=== PATIENT | male | born 1990 | race Hispanic/Latino ===

== ENCOUNTER 2017-11-15 00:44 | Inpatient (IN) | payer BC ==
[2017-11-15] VITALS (23 sets, daily range): BP systolic 114–156; BP diastolic 57–93
[~2017-11-15] VITALS: Ht 167.6 cm; Wt 114.2 kg
[2017-11-15] MEDS ORDERED: HYDROMORPHONE HCL 2 MG/ML VIAL IVP PRN (02:15)
[2017-11-15] MEDS ORDERED: SODIUM CHLORIDE 0.9% 1000ML 1,000 ML IV SCH ×2 (02:15)
[2017-11-15] MEDS ORDERED: DEXTROSE 50%-WATER 50 ML DISP.SYRIN IV PRN ×2 (02:15→03:15)
[2017-11-15] MEDS ORDERED: CALCIUM GLUCONATE 1 GM in SODIUM CHLORIDE 0.9% 50 ML IV SCH (02:15)
[2017-11-15] MEDS ORDERED: GLUCAGON 1MG KIT 1 MG ML IM PRN ×2 (02:15→03:15)
[2017-11-15] MEDS ORDERED: HYDROMORPHONE HCL 0.5 MG/0.5 ML ML ONE ×3 (02:17→05:13)
[2017-11-15] MEDS ORDERED: ACETAMINOPHEN 650 MG SUPPOSITORY RC PRN (02:30)
[2017-11-15] MEDS ORDERED: CALCIUM GLUCONATE 1 GM/10 ML VIAL IV ONE (02:38)
[2017-11-15] MEDS ORDERED: MORPHINE SULFATE 4 MG/1ML SYG ONE (02:52)
[2017-11-15] MEDS ORDERED: POTASSIUM CHLORIDE 20MEQ/100ML 100 ML IV PRN (03:15)
[2017-11-15] MEDS ORDERED: POTASSIUM CHLORIDE 10% ELIXIR 20 MEQ/15 ML UDCUP PO PRN (03:15)
[2017-11-15] MEDS ORDERED: LIDOCAINE HCL-MPF 1% 2ML VIAL IVP PRN (03:15)
[2017-11-15] MEDS: SODIUM CHLORIDE 0.9% 1000ML 1,000 ML IV SCH ×4 (04:29→23:35)
[2017-11-15] MEDS: INSULIN LISPRO 100 UNIT/ML 3ML SQ SCH ×4 (06:26→21:00)
[2017-11-15] MEDS ORDERED: INSULIN DETEMIR 10ML 100 UNIT/ML 10ML SQ SCH (07:30)
[2017-11-15] MEDS: MORPHINE SULFATE 4 MG/1ML SYG IV PRN ×3 (07:30→18:12)
[2017-11-15] MEDS: ONDANSETRON HCL MDV 20ML 2 MG/ML VIAL IVP PRN ×3 (07:31→20:12)
[2017-11-15] MEDS ORDERED: INSULIN GLARGINE 100 UNITS/ML 10 ML VIAL SQ SCH (08:00)
[2017-11-15] MEDS: ENOXAPARIN SODIUM 40 MG/0.4 ML SYRINGE SQ SCH (08:24)
[2017-11-15] MEDS ORDERED: CALCIUM GLUCONATE 1 GM in DEXTROSE 5%-WATER 50 ML IV SCH (09:00)
[2017-11-15] MEDS ORDERED: PANTOPRAZOLE 40 MG/VIAL IVP SCH (09:00)
[2017-11-15 09:48] LABS: BASOPHILS % (AUTO) 0.5 % (0.0-5.0); EOSINOPHILS % (AUTO) 0.2 % (0.0-8.0); HEMATOCRIT 45.9 % (42-54); LYMPHOCYTES % (AUTO) 8.4 % (21.0-51.0); MEAN CORPUSCULAR HEMOGLOBIN 31.4 pg (27.0-33.0); MEAN CORPUSCULAR HGB CONC 36.7 g/dL (32.0-36.0); MEAN CORPUSCULAR VOLUME 85.6 fL (79-99); MONOCYTES % (AUTO) 8.9 % (3.0-13.0); PLATELET COUNT (AUTO) 212 K/uL (130-400); RED BLOOD CELL COUNT(AUTO) 5.37 MIL/uL (4.50-6.20); RED CELL DISTRIBUTION WIDTH 13.2 % (11.0-15.5); WHITE BLOOD COUNT (AUTO) 15.1 K/uL (4.8-10.8)
[2017-11-15 10:45] LABS: CREATININE 0.5 mg/dL (0.5-1.5); POTASSIUM 4.8 mmol/L (3.5-5.1)
[2017-11-15 10:57] LABS: ALBUMIN 2.3 g/dL (3.5-5.0); BILIRUBIN,TOTAL 1.6 mg/dL (0.2-1.0); TOTAL PROTEIN, SERUM 6.6 g/dL (6.0-8.3)
[2017-11-15] MEDS ORDERED: HYDROMORPHONE 1 MG/1 ML AMP ONE ×2 (11:07→20:40)
[2017-11-15] MEDS ORDERED: INSULIN REGULAR, HUMAN 3ML 100 UNIT in SODIUM CHLORIDE 0.9% 99 ML IV SCH ×2 (11:45)
[2017-11-15] MEDS ORDERED: DEXTROSE 5 % AND 0.9 % NACL 1,000 ML IV ONE (14:16)
[2017-11-15] MEDS: METOPROLOL TARTRATE 1 MG/ML 5ML VIAL IV PRN ×2 (14:54→21:16)
[2017-11-15] MEDS: ACETAMINOPHEN ELIXIR 325 MG/10.15ML UDCUP PO PRN (15:12)
[2017-11-15 15:22] LABS: POTASSIUM 4.1 mmol/L (3.5-5.1)
[2017-11-15] MEDS: HYDROMORPHONE HCL 2 MG/ML VIAL IVP SCH ×2 (21:00→21:32)
[2017-11-15 22:51] LABS: POTASSIUM 3.8 mmol/L (3.5-5.1)
[2017-11-16] VITALS (15 sets, daily range): BP systolic 123–147; BP diastolic 68–85
[2017-11-16] MEDS ORDERED: DEXTROSE 5 % AND 0.9 % NACL 1,000 ML IV ONE (00:45)
[2017-11-16] MEDS: HYDROMORPHONE 1 MG/1 ML AMP IVP PRN ×2 (00:54→05:03)
[2017-11-16 04:38] LABS: HEMATOCRIT 43.9 % (42-54); MEAN CORPUSCULAR HEMOGLOBIN 30.5 pg (27.0-33.0); MEAN CORPUSCULAR HGB CONC 35.7 g/dL (32.0-36.0); MEAN CORPUSCULAR VOLUME 85.4 fL (79-99); PLATELET COUNT (AUTO) 204 K/uL (130-400); RED BLOOD CELL COUNT(AUTO) 5.14 MIL/uL (4.50-6.20); RED CELL DISTRIBUTION WIDTH 13.5 % (11.0-15.5); WHITE BLOOD COUNT (AUTO) 11.9 K/uL (4.8-10.8)
[2017-11-16 04:51] LABS: CREATININE 0.6 mg/dL (0.5-1.5); POTASSIUM 3.6 mmol/L (3.5-5.1)
[2017-11-16] MEDS: ONDANSETRON HCL MDV 20ML 2 MG/ML VIAL IVP PRN (05:03)
[2017-11-16] MEDS: INSULIN LISPRO 100 UNIT/ML 3ML SQ SCH ×4 (07:30→21:16)
[2017-11-16] MEDS: PANTOPRAZOLE SODIUM 40 MG TABLET.DR PO SCH (08:06)
[2017-11-16] MEDS: ENOXAPARIN SODIUM 40 MG/0.4 ML SYRINGE SQ SCH (08:07)
[2017-11-16] MEDS: ACETAMINOPHEN ELIXIR 325 MG/10.15ML UDCUP PO PRN (08:07)
[2017-11-16] MEDS: SODIUM CHLORIDE 0.9% 1000ML 1,000 ML IV SCH (10:15)
[2017-11-16] MEDS ORDERED: SODIUM CHLORIDE 0.9% 1000ML 1,000 ML IV SCH (17:45)
[2017-11-16] MEDS: METOPROLOL TARTRATE 25 MG TAB PO SCH (21:09)
[2017-11-16] MEDS: NIACIN 500 MG SRTAB PO SCH (21:09)
[2017-11-16] MEDS: FENOFIBRATE NANOCRYSTALLIZED 145 MG TAB PO SCH (21:10)
[2017-11-17] VITALS (7 sets, daily range): BP systolic 131–145; BP diastolic 76–88
[2017-11-17] MEDS: INSULIN LISPRO 100 UNIT/ML 3ML SQ SCH ×4 (05:45→20:49)
[2017-11-17 06:00] LABS: BASOPHILS % (AUTO) 0.9 % (0.0-5.0); HEMATOCRIT 38.4 % (42-54); LYMPHOCYTES % (AUTO) 18.6 % (21.0-51.0); MEAN CORPUSCULAR HEMOGLOBIN 30.4 pg (27.0-33.0); MEAN CORPUSCULAR HGB CONC 35.2 g/dL (32.0-36.0); MEAN CORPUSCULAR VOLUME 86.4 fL (79-99); MONOCYTES % (AUTO) 8.6 % (3.0-13.0); NEUTROPHILS % (AUTO) 69.9 % (40.0-77.0); PLATELET COUNT (AUTO) 197 K/uL (130-400); RED BLOOD CELL COUNT(AUTO) 4.45 MIL/uL (4.50-6.20); RED CELL DISTRIBUTION WIDTH 13.2 % (11.0-15.5); WHITE BLOOD COUNT (AUTO) 9.8 K/uL (4.8-10.8)
[2017-11-17 06:13] LABS: CREATININE 0.5 mg/dL (0.5-1.5); MAGNESIUM 1.9 mg/dL (1.80-2.40); POTASSIUM 3.4 mmol/L (3.5-5.1)
[2017-11-17] MEDS: INSULIN GLARGINE 100 UNITS/ML 10 ML VIAL SQ SCH (08:53)
[2017-11-17] MEDS: PANTOPRAZOLE SODIUM 40 MG TABLET.DR PO SCH (09:39)
[2017-11-17] MEDS: METOPROLOL TARTRATE 25 MG TAB PO SCH ×2 (09:39→20:46)
[2017-11-17] MEDS: FISH OIL 1000 MG/CAP PO SCH ×2 (09:39→20:46)
[2017-11-17] MEDS: POTASSIUM CHLORIDE 20 MEQ ERTAB PO PRN ×2 (09:39→20:47)
[2017-11-17] MEDS: ENOXAPARIN SODIUM 40 MG/0.4 ML SYRINGE SQ SCH (09:41)
[2017-11-17] MEDS: METFORMIN HCL 850 MG TABLET PO SCH (19:42)
[2017-11-17] MEDS: FENOFIBRATE NANOCRYSTALLIZED 145 MG TAB PO SCH (20:46)
[2017-11-17] MEDS: NIACIN 500 MG SRTAB PO SCH (20:46)
[2017-11-18 04:00] VITALS: BP 139/86
[2017-11-18 05:29] LABS: HEMATOCRIT 37.3 % (42-54); MEAN CORPUSCULAR HEMOGLOBIN 30.3 pg (27.0-33.0); MEAN CORPUSCULAR HGB CONC 35.5 g/dL (32.0-36.0); MEAN CORPUSCULAR VOLUME 85.3 fL (79-99); PLATELET COUNT (AUTO) 209 K/uL (130-400); RED BLOOD CELL COUNT(AUTO) 4.37 MIL/uL (4.50-6.20); RED CELL DISTRIBUTION WIDTH 13.1 % (11.0-15.5); WHITE BLOOD COUNT (AUTO) 8.1 K/uL (4.8-10.8)
[2017-11-18 05:46] LABS: CREATININE 0.5 mg/dL (0.5-1.5); POTASSIUM 3.4 mmol/L (3.5-5.1)
[2017-11-18] MEDS: POTASSIUM CHLORIDE 20 MEQ ERTAB PO PRN (06:00)
[2017-11-18] MEDS: INSULIN LISPRO 100 UNIT/ML 3ML SQ SCH ×4 (06:35→21:56)
[2017-11-18] MEDS: INSULIN GLARGINE 100 UNITS/ML 10 ML VIAL SQ SCH (06:36)
[2017-11-18 07:00] VITALS: BP 141/97
[2017-11-18] MEDS: METFORMIN HCL 850 MG TABLET PO SCH (08:41)
[2017-11-18] MEDS: ENOXAPARIN SODIUM 40 MG/0.4 ML SYRINGE SQ SCH (08:42)
[2017-11-18] MEDS: PANTOPRAZOLE SODIUM 40 MG TABLET.DR PO SCH (08:42)
[2017-11-18] MEDS: METOPROLOL TARTRATE 25 MG TAB PO SCH ×2 (08:42→21:49)
[2017-11-18] MEDS: FISH OIL 1000 MG/CAP PO SCH ×2 (08:42→21:49)
[2017-11-18 10:50] LABS: ALBUMIN 1.8 g/dL (3.5-5.0); BILIRUBIN,DIRECT 0.1 mg/dL (0.0-0.3); BILIRUBIN,TOTAL 0.7 mg/dL (0.2-1.0); TOTAL PROTEIN, SERUM 6.1 g/dL (6.0-8.3)
[2017-11-18 11:00] VITALS: BP 127/75
[2017-11-18 19:06] VITALS: BP 136/90
[2017-11-18 20:00] VITALS: BP 131/76
[2017-11-18] MEDS: FENOFIBRATE NANOCRYSTALLIZED 145 MG TAB PO SCH (21:49)
[2017-11-18] MEDS: NIACIN 500 MG SRTAB PO SCH (21:50)
[2017-11-19] VITALS (7 sets, daily range): BP systolic 128–137; BP diastolic 75–85
[2017-11-19 06:04] LABS: CREATININE 0.6 mg/dL (0.5-1.5); POTASSIUM 3.2 mmol/L (3.5-5.1)
[2017-11-19] MEDS: INSULIN LISPRO 100 UNIT/ML 3ML SQ SCH ×4 (06:22→21:28)
[2017-11-19] MEDS: INSULIN GLARGINE 100 UNITS/ML 10 ML VIAL SQ SCH (06:25)
[2017-11-19] MEDS ORDERED: DIATR MEGLU/DIATRIZOATE SODIUM 30 ML BOTTLE ONE (07:45)
[2017-11-19] MEDS: PANTOPRAZOLE SODIUM 40 MG TABLET.DR PO SCH (09:00)
[2017-11-19] MEDS: FISH OIL 1000 MG/CAP PO SCH ×2 (09:00→21:22)
[2017-11-19] MEDS: METOPROLOL TARTRATE 25 MG TAB PO SCH ×2 (09:00→21:22)
[2017-11-19] MEDS: ENOXAPARIN SODIUM 40 MG/0.4 ML SYRINGE SQ SCH (09:56)
[2017-11-19] MEDS: POTASSIUM CHLORIDE 20 MEQ ERTAB PO PRN (16:34)
[2017-11-19] MEDS: FENOFIBRATE NANOCRYSTALLIZED 145 MG TAB PO SCH (21:22)
[2017-11-19] MEDS: NIACIN 500 MG SRTAB PO SCH (21:22)
[2017-11-20 03:08] VITALS: BP 126/77
[2017-11-20] MEDS: SODIUM CHLORIDE 0.9% 1000ML 1,000 ML IV SCH ×2 (04:13→16:28)
[2017-11-20 05:22] LABS: HEMATOCRIT 35.2 % (42-54); MEAN CORPUSCULAR VOLUME 85.6 fL (79-99); PLATELET COUNT (AUTO) 236 K/uL (130-400); RED BLOOD CELL COUNT(AUTO) 4.11 MIL/uL (4.50-6.20); WHITE BLOOD COUNT (AUTO) 8.7 K/uL (4.8-10.8)
[2017-11-20 05:46] LABS: CREATININE 0.5 mg/dL (0.5-1.5); POTASSIUM 3.6 mmol/L (3.5-5.1)
[2017-11-20 07:10] VITALS: BP 137/86
[2017-11-20] MEDS: INSULIN LISPRO 100 UNIT/ML 3ML SQ SCH ×4 (07:30→20:41)
[2017-11-20] MEDS ORDERED: GADOBENATE DIMEGLUMINE 20 ML IV ONE (08:16)
[2017-11-20] MEDS: PANTOPRAZOLE SODIUM 40 MG TABLET.DR PO SCH (10:03)
[2017-11-20] MEDS: METOPROLOL TARTRATE 25 MG TAB PO SCH ×2 (10:03→20:33)
[2017-11-20] MEDS: FISH OIL 1000 MG/CAP PO SCH ×2 (10:03→20:33)
[2017-11-20] MEDS: POTASSIUM CHLORIDE 20 MEQ ERTAB PO PRN ×2 (10:04→11:59)
[2017-11-20] MEDS: ENOXAPARIN SODIUM 40 MG/0.4 ML SYRINGE SQ SCH (10:05)
[2017-11-20] MEDS: INSULIN GLARGINE 100 UNITS/ML 10 ML VIAL SQ SCH (10:14)
[2017-11-20 11:00] VITALS: BP 133/86
[2017-11-20 15:00] VITALS: BP 110/76
[2017-11-20 19:20] VITALS: BP 126/75
[2017-11-20] MEDS: NIACIN 500 MG SRTAB PO SCH (20:33)
[2017-11-20] MEDS: FENOFIBRATE NANOCRYSTALLIZED 145 MG TAB PO SCH (20:33)
[2017-11-20 23:15] VITALS: BP 123/74
[2017-11-21] MEDS: SODIUM CHLORIDE 0.9% 1000ML 1,000 ML IV SCH ×2 (02:37→12:39)
[2017-11-21 03:20] VITALS: BP 134/77
[2017-11-21 05:55] LABS: CREATININE 0.6 mg/dL (0.5-1.5); POTASSIUM 3.8 mmol/L (3.5-5.1)
[2017-11-21] MEDS: INSULIN LISPRO 100 UNIT/ML 3ML SQ SCH ×3 (06:15→16:30)
[2017-11-21 07:00] VITALS: BP 140/91
[2017-11-21] MEDS: FISH OIL 1000 MG/CAP PO SCH (08:29)
[2017-11-21] MEDS: PANTOPRAZOLE SODIUM 40 MG TABLET.DR PO SCH (08:29)
[2017-11-21] MEDS: METOPROLOL TARTRATE 25 MG TAB PO SCH (08:29)
[2017-11-21] MEDS: ENOXAPARIN SODIUM 40 MG/0.4 ML SYRINGE SQ SCH (08:30)
[2017-11-21] MEDS: INSULIN GLARGINE 100 UNITS/ML 10 ML VIAL SQ SCH (08:31)
[2017-11-21 11:38] VITALS: BP 127/81
[2017-11-21] MEDS ORDERED: NIAC500SR PO (13:13)
[2017-11-21] MEDS ORDERED: FENO145T PO (13:13)
[2017-11-21] MEDS ORDERED: INSLAN SQ (13:13)
[2017-11-21] MEDS ORDERED: FISH1CAP20 PO (13:13)
[2017-11-21] MEDS ORDERED: METO25 PO (13:13)
== END 2017-11-21 17:18 | disposition home or self-care (01) | DRG 438 ==
LOC: 4BH 01:35 → MERGE 01:35 → 2CH 13:24 → 4BH 11-16 12:26
PROVIDERS: ADMIT Family Medicine; ATTEND Family Medicine
DX: K85.90 Acute pancreatitis without necrosis or infection, unspecified (principal); E43 Unspecified severe protein-calorie malnutrition; R65.10 Systemic inflammatory response syndrome (SIRS) of non-infectious origin without acute organ dysfunction; E11.65 Type 2 diabetes mellitus with hyperglycemia; E66.01 Morbid (severe) obesity due to excess calories; E83.51 Hypocalcemia; E87.1 Hypo-osmolality and hyponatremia; Z68.41 Body mass index [BMI] 40.0-44.9, adult; K86.1 Other chronic pancreatitis; E78.1 Pure hyperglyceridemia; E78.5 Hyperlipidemia, unspecified; E86.0 Dehydration; F17.200 Nicotine dependence, unspecified, uncomplicated; I10 Essential (primary) hypertension; J00 Acute nasopharyngitis [common cold]; Z88.8 Allergy status to other drugs, medicaments and biological substances; Z83.3 Family history of diabetes mellitus
CPT/HCPCS: 36415; 74178; 74183; 76705; 80048; 80051; 80053; 80061; 80076; 82150; 82948; 83690; 83735; 84478; 85025; 85027; 87040; A9577; C9113; J0610; J1170; J1650; J1815; J2270; J3480; J3490; J7030; J7042; Q9963

== ENCOUNTER 2022-07-24 21:49 | Emergency (ER) | payer BC ==
[~2022-07-24] VITALS: Ht 165.1 cm; Wt 99.3 kg
[~2022-07-24 21:49] MED LIST: ACET-2079 PO; FENO145T PO; FISH1CAP20 PO; IBUP-2070 PO; INSLAN SQ; METO25 PO; NIAC500SR PO
[2022-07-24] MEDS ORDERED: SOLU-MEDROL 125MG VIAL IVP ONE (22:30)
[2022-07-24] MEDS ORDERED: ACETAMINOPHEN 325 MG TAB PO ONE (22:30)
[2022-07-24 22:44] LABS: BASOPHILS % (AUTO) 0.5 % (0.0-5.0); EOSINOPHILS % (AUTO) 0.1 % (0.0-8.0); HEMATOCRIT 38.2 % (42-54); LYMPHOCYTES % (AUTO) 5.5 % (21.0-51.0); MEAN CORPUSCULAR HGB CONC 35.3 g/dL (32.0-36.0); MEAN CORPUSCULAR VOLUME 84.9 fL (79-99); MONOCYTES % (AUTO) 6.3 % (3.0-13.0); PLATELET COUNT (AUTO) 154 K/uL (130-400); RED CELL DISTRIBUTION WIDTH 12.4 % (11.0-15.5); WHITE BLOOD COUNT (AUTO) 11.6 K/uL (4.8-10.8)
[2022-07-24 22:54] LABS: CREATININE 0.9 mg/dL (0.5-1.5); POTASSIUM 4.3 mmol/L (3.5-5.1)
[2022-07-24 23:01] LABS: ALBUMIN 2.3 g/dL (3.5-5.0); TOTAL PROTEIN, SERUM 6.5 g/dL (6.0-8.3)
[2022-07-24] MEDS ORDERED: DULA0.75 SQ (23:03)
[2022-07-24] MEDS ORDERED: GLIP10TA9 PO (23:03)
[2022-07-24] MEDS ORDERED: METF-444 PO (23:03)
[2022-07-25 01:03] VITALS: BP 126/81
[2022-07-25] MEDS ORDERED: METH4TAB3 PO (01:53)
== END 2022-07-25 02:12 | disposition home or self-care (01) ==
LOC: EDH 21:49
DX: S46.912A Strain of unspecified muscle, fascia and tendon at shoulder and upper arm level, left arm, initial encounter (principal); S29.011A Strain of muscle and tendon of front wall of thorax, initial encounter; E11.9 Type 2 diabetes mellitus without complications; E78.00 Pure hypercholesterolemia, unspecified; I10 Essential (primary) hypertension; Z20.822 Contact with and (suspected) exposure to COVID-19; Z79.84 Long term (current) use of oral hypoglycemic drugs; Z79.899 Other long term (current) drug therapy; Z88.8 Allergy status to other drugs, medicaments and biological substances; Z90.89 Acquired absence of other organs; X58.XXXA Exposure to other specified factors, initial encounter; Y93.89 Activity, other specified; Y92.89 Other specified places as the place of occurrence of the external cause; Y99.8 Other external cause status
CPT/HCPCS: 99284; 96374; 71045; 87635; 84484; 80053; 85025; 87804 ×2; 36415; C9803; J2930

== ENCOUNTER 2022-07-28 14:15 | Emergency (ER) | payer BC ==
[~2022-07-28] VITALS: Ht 165.1 cm; Wt 104.3 kg
[~2022-07-28 14:15] MED LIST changes: +DULA0.75 SQ; +GLIP10TA9 PO; +METF-444 PO; +METH4TAB3 PO
[2022-07-28 14:23] VITALS: BP 167/102
[2022-07-28] MEDS ORDERED: TRAM50TA4 PO (16:27)
[2022-07-28] MEDS ORDERED: TRAMADOL HCL 50 MG TABLET PO ONE (16:30)
== END 2022-07-28 17:07 | disposition home or self-care (01) ==
LOC: EDH 14:15
DX: M75.102 Unspecified rotator cuff tear or rupture of left shoulder, not specified as traumatic (principal); E11.9 Type 2 diabetes mellitus without complications; E78.00 Pure hypercholesterolemia, unspecified; I10 Essential (primary) hypertension; Z79.1 Long term (current) use of non-steroidal anti-inflammatories (NSAID); Z79.52 Long term (current) use of systemic steroids; Z79.84 Long term (current) use of oral hypoglycemic drugs